=== PATIENT | female | born 1990 | race Caucasian/White ===

== ENCOUNTER 2017-07-05 17:29 | Emergency (ER) | payer OTHER | END 2017-07-05 18:36 | disposition left against medical advice (07) | LOC: ER 17:29 | DX: Z53.21 Procedure and treatment not carried out due to patient leaving prior to being seen by health care provider (principal) ==

== ENCOUNTER 2023-02-11 14:45 | Emergency (ER) | payer OTHER ==
[~2023-02-11] VITALS: Ht 157.5 cm; Wt 145.1 kg
[2023-02-11] MEDS ORDERED: IV NORMAL SALINE 500 ML BAG IV ONE (16:00)
[2023-02-11 16:09] LABS: *BILIRUBIN,URIN NEGATIVE (NEGATIVE); *BLOOD, URINE 3+ (NEGATIVE); *COLOR,URINE RED (YELLOW); *KETONES,URINE NEGATIVE (NEGATIVE); *UROBILINOGEN,URINE 0.2 E.U./dl (NORMAL); LEUKOCYTE ESTERASE ,URINE NEGATIVE (NEGATIVE); NITRITE, URINE NEGATIVE (NEGATIVE)
[2023-02-11 16:12] LABS: *PROTEIN,URINE 3+ (NEGATIVE); UGLUCOSE 3+ (NEGATIVE)
[2023-02-11 16:13] LABS: *URINE HCG, QUAL NEGATIVE (NEGATIVE)
[2023-02-11 16:19] LABS: *CLARITY,URINE TURBID (CLEAR)
[2023-02-11 16:22] LABS: BASOPHILS # (AUTO) 0.2 K/UL (0.0-0.2); BASOPHILS % (AUTO) 1.5 % (0.0-2.0); EOSINOPHILS # (AUTO) 0.1 K/uL (0.0-0.7); EOSINOPHILS % (AUTO) 0.8 % (0.0-7.0); HEMATOCRIT 40.1 % (31.2-41.9); LYMPHOCYTES # (AUTO) 3.6 K/uL (0.8-4.8); LYMPHOCYTES % (AUTO) 30.9 % (20.5-51.5); MEAN CORPUSCULAR HEMOGLOBIN 28.3 uug (24.7-32.8); MEAN CORPUSCULAR HGB CONC 33 g/dL (32.3-35.6); MEAN CORPUSCULAR VOLUME 87.1 fL (75.5-95.3); MONOCYTES # (AUTO) 0.7 K/uL (0.1-1.30); MONOCYTES % (AUTO) 5.7 % (0.0-11.0); NEUTROPHILS # (AUTO) 7.1 K/uL (1.8-8.9); NEUTROPHILS % (AUTO) 61.1 % (38.5-71.5); PLATELET COUNT (AUTO) 409 K/uL (179-408); RED CELL DISTRIBUTION WIDTH 14.6 % (12.3-17.7); WHITE BLOOD COUNT (AUTO) 11.6 K/uL (3.8-11.8)
[2023-02-11 16:23] LABS: RBC,URINE TNTC /HPF (0-3)
[2023-02-11 16:25] LABS: BACTERIA,URINE MODERATE /HPF (NONE SEEN); SQUAMOUS EPITHELIAL CELL,UR FEW /HPF (NONE SEEN); WBC,URINE 0-3 /HPF (0-3)
[2023-02-11 16:36] LABS: DIFFERENTIAL COMMENT 1
[2023-02-11 16:44] LABS: ALBUMIN 3.6 g/dL (3.4-5.0); BILIRUBIN,TOTAL 0.4 mg/dL (0.2-1.0); CREATININE 0.8 mg/dL (0.6-1.3); POTASSIUM 3.8 mmol/L (3.5-5.1); TOTAL PROTEIN, SERUM 8.1 g/dL (6.4-8.2)
[2023-02-11] MEDS ORDERED: CEFTRIAXONE 500 MG VIAL ONE (18:29)
[2023-02-11] MEDS ORDERED: CEFTRIAXONE 500 MG VIAL IV ONE (18:30)
[2023-02-11] MEDS ORDERED: CEFTRIAXONE 1 G in IV DEXTROSE 5% 50 ML IV ONE (18:45)
[2023-02-11] MEDS ORDERED: DOXY-326 PO (19:16)
[2023-02-11] MEDS ORDERED: NITR-84 PO (19:16)
[2023-02-11 19:35] VITALS: BP 128/69; TEMP 98; O2SAT 98
== END 2023-02-11 19:37 | disposition home or self-care (01) ==
LOC: ER 14:48
DX: N93.9 Abnormal uterine and vaginal bleeding, unspecified (principal); N39.0 Urinary tract infection, site not specified; R10.2 Pelvic and perineal pain; E11.9 Type 2 diabetes mellitus without complications; Z88.5 Allergy status to narcotic agent; Z79.2 Long term (current) use of antibiotics; Z79.899 Other long term (current) drug therapy
CPT/HCPCS: 36415; 84703; 85025; 86850; 86900; 86901; A4663; J0696; J7040

== ENCOUNTER 2024-11-14 22:35 | Emergency (ER) | payer OTHER ==
[~2024-11-14] VITALS: Ht 157.5 cm; Wt 140.6 kg
[~2024-11-14 22:35] MED LIST: DOXY-326 PO; NITR-84 PO
[2024-11-14] MEDS ORDERED: ACYC5CRE8 TP (23:35)
[2024-11-14] MEDS ORDERED: VALA500T PO (23:35)
[2024-11-14 23:54] VITALS: BP 101/65; TEMP 98; O2SAT 97
== END 2024-11-14 23:55 | disposition home or self-care (01) ==
LOC: ER 22:35
DX: B00.1 Herpesviral vesicular dermatitis (principal); Z79.624 Long term (current) use of inhibitors of nucleotide synthesis; Z88.7 Allergy status to serum and vaccine; Z86.79 Personal history of other diseases of the circulatory system
CPT/HCPCS: A4606; A4663